=== PATIENT | female | born 1970 | race Two or more races ===

== ENCOUNTER 2022-03-08 11:44 | Emergency (ER) | payer OTHER ==
[~2022-03-08] VITALS: Ht 185.4 cm; Wt 84.8 kg
[~2022-03-08 11:44] MED LIST: NAPROXEN375 MG PO; PEPCID AC20 MG PO; TENORMIN50 M1
== END 2022-03-08 15:52 | disposition home or self-care (01) ==
LOC: ER 11:44
DX: M72.2 Plantar fascial fibromatosis (principal); I10 Essential (primary) hypertension

== ENCOUNTER 2022-06-09 13:06 | Emergency (ER) | payer OTHER ==
[~2022-06-09] VITALS: Ht 185.4 cm; Wt 87.1 kg
== END 2022-06-09 16:59 | disposition home or self-care (01) ==
LOC: ER 13:06
DX: S90.02XA Contusion of left ankle, initial encounter (principal); S90.01XA Contusion of right ankle, initial encounter; W19.XXXA Unspecified fall, initial encounter; Y93.9 Activity, unspecified; Y92.9 Unspecified place or not applicable; Y99.9 Unspecified external cause status